=== PATIENT | male | born 1955 | race Caucasian/White ===

== ENCOUNTER 2023-09-22 10:58 | Emergency (ER) | payer SELFPAY ==
[~2023-09-22] VITALS: Ht 177.8 cm; Wt 88.0 kg
[2023-09-22 11:12] VITALS: TEMP 98.5; O2SAT 97
[2023-09-22 13:22] LABS: CLARITY URINE CLOUDY (CLEAR); COLOR URINE YELLOW (YELLOW); GLUCOSE URINE 3+ (NEGATIVE); KETONES URINE NEGATIVE (NEGATIVE); LEUKOCYTE ESTERASE URINE 1+ (NEGATIVE); NITRITE URINE NEGATIVE (NEGATIVE); OCCULT BLOOD URINE 3+ (NEGATIVE); PH URINE 5.5 (4.5-8.0); PROTEIN URINE TRACE (NEGATIVE); SPECIFIC GRAVITY URINE 1.028 (1.005-1.030); UROBILINOGEN URINE 0.2 E.U./dL (0.2-1.0)
[2023-09-22 13:38] LABS: BACTERIA URINE FEW; RBC URINE 50-100 /hpf (0-2); SQUAMOUS EPITHELIAL CELL URINE NONE SEEN /lpf (RARE/1+); WBC URINE 25-50 /hpf (0-2); YEAST URINE NONE SEEN
[2023-09-22] MEDS ORDERED: CEFP200T13 MT (13:49)
[2023-09-22 14:15] VITALS: BP 132/89; PULSE 78; RESP 16
== END 2023-09-22 14:17 | disposition home or self-care (01) ==
LOC: ER 12:25
DX: N39.0 Urinary tract infection, site not specified (principal); B34.9 Viral infection, unspecified; E11.9 Type 2 diabetes mellitus without complications; I10 Essential (primary) hypertension; Z98.890 Other specified postprocedural states; Z20.822 Contact with and (suspected) exposure to COVID-19
CPT/HCPCS: 71046; 81003; 87070; 87426; 87430; 87804; 99284